=== PATIENT | female | born 1985 | race Caucasian/White ===

== ENCOUNTER 2019-10-02 10:29 | Emergency (ER) | payer MEDICAID, SELFPAY ==
[2019-10-02 10:29] VITALS: BP 98/66; PULSE 106; RESP 24; TEMP 37; O2SAT 100
--- NOTE | 2019-10-02 10:30 | DI.CT_ITS ---
EXAM: CT CHEST/ABD/PEL W CLINICAL HISTORY: Trauma rule out internal hemorrhage TECHNIQUE: COMPARISON: No exams were available for comparison FINDINGS: CT examination of the chest,, and pelvis was performed with bolus infusion of 1 cc of Omnipaque 350. There are severe pulmonary emphysematous changes predominantly involving the upper lobes. There is predominantly linear radiodensity in the right lung base which may represent areas of atelectasis and /or scarring. Possibility of pulmonary contusion is not excluded, please correlate regarding exact s ite of major injury. No abnormality of the tracheobronchial tree seen. No pleural effusion or pneum othorax. No mediastinal hematoma. No vascular injury of the thorax. Marked breathing artifact obscures the borders of the spleen and superior border of the liver. No gr oss free fluid identified in the upper abdomen, splenic injury cannot be reliably excluded, repeat CT may be obtained if clinically indicated. Similarly, there is poor visualization of the upper poles of both kidneys, renal injury cannot reliably be excluded. Pancreas is unremarkable in appearance. No free intraperitoneal air. No gross bowel injury or or obstruction. No gross abdominal wall hemat briseida or hernia. Urinary bladder appears intact. No evidence of vascular injury of the abdomen. No free intraperitoneal fluid or free air. No fracture identified on scanning of the chest abdomen and pelvis. IMPRESSION: No evidence of acute injury of the chest abdomen or pelvis. Spleen liver and kidneys were not ideall y evaluated due to motion artifact, repeat scan may be obtained if clinically indicated.
--- NOTE | 2019-10-02 10:30 | DI.CT_ITS ---
EXAM: CT HEAD CERVICAL SPINE WO CLINICAL HISTORY: Trauma rule out hemorrhage or fracture TECHNIQUE: COMPARISON: No exams were available for comparison FINDINGS: CT examination of the cervical spine was performed utilizing multi slice acquisition multiplanar viral nstruction. There is no cervical mass or adenopathy. Tracheolaryngeal structures appear intact. Pr evertebral soft tissues are unremarkable. There are mild degenerative changes of the mid cervical re gion. There is a nondisplaced fracture of the posterior spinous process of C5. No additional fracture seen . No evidence of facet dislocation. Noncontrast cranial CT was performed. There is no evidence of calvarial fracture. The orbital and t emporal bone structures appear intact. Visualized mastoid air cells and paranasal sinuses are clear. There is no evidence of acute intracranial hemorrhage, mass effect, or midline shift. IMPRESSION: No evidence of acute intracranial process. Nondisplaced stable fracture posterior spinous process C5. No additional cervical spine injury seen.
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
--- NOTE | 2019-10-02 10:33 | DI.CT_ITS ---
EXAM: CT THORACIC LUMBAR SPINE REC CLINICAL HISTORY: Trauma lower back pain TECHNIQUE: COMPARISON: No exams were available for comparison FINDINGS: CT reconstructions of the thoracic spine and CT reconstructions of the lumbar spine were from the law data from the chest abdomen pelvis CT. No thoracic spine fracture seen. No lumbar spine fracture s een. SI joints appear well maintained. IMPRESSION: No acute fracture identified.
[2019-10-02] MEDS: Normal Saline Flush 10 ML SYR IVP ×2 (10:40→17:00)
[2019-10-02] MEDS: Normal Saline 1,000 ML 1000 ML IV ×2 (10:40→12:15)
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
--- NOTE | 2019-10-02 10:45 | DI.RAD_ITS ---
EXAM: XR KNEE RT 2V AP,LAT CLINICAL HISTORY: Trauma TECHNIQUE: COMPARISON: No exams were available for comparison FINDINGS: Two views were obtained. There is no evidence of a fracture or dislocation. IMPRESSION:
[2019-10-02] MEDS: Ondansetron 4 MG/2 ML VIAL IVP (10:46)
[2019-10-02] MEDS: Omnipaque 350 MG/ML 100 ML BTL IJ ×2 (11:29→16:58)
[2019-10-02 12:01] LABS: Bilirubin Negative (Negative); Blood Negative (Negative); Glucose Negative (Negative); Ketones Negative (Negative); Leukocyte Esterase Negative (Negative); Nitrite Negative (Negative); pH 7.5 (5-8)
[2019-10-02 12:16] LABS: *AMPHETAMINES SCREEN URINE Negative (Negative); *BARBITURATES SCREEN URINE Negative (Negative); *BENZODIAZEPINES SCREEN URINE Negative (Negative); Cannabinoids THC POSITIVE (Negative); Cocaine Screen,Urine POSITIVE (Negative); METHADONE URINE SCREEN Negative (Negative); OPIATES URINE SCREEN POSITIVE (Negative); Tricyclic Antidepressants Negative (Negative)
[2019-10-02 12:25] LABS: ALT 30 U/L (14-59); AST 43 U/L (15-37); Albumin 3.1 g/dL (3.4-5.0); Alkaline Phosphatase 89 U/L (46-116); Anion Gap 11.6 mmol/L (3-11); BUN 14 mg/dL (7-18); Bilirubin, Total 0.2 mg/dL (0.2-1.0); CO2 18.4 mmol/L (21.0-32.0); CREATININE 0.85 mg/dL (0.55-1.02); Calcium 8.1 mg/dL (8.5-10.1); Chloride 108 mmol/L (98-107); Glucose 109 mg/dL (74-106); Lipase 94 U/L (73-393); Sodium 138 mmol/L (136-145); Total Protein 6.7 g/dL (6.4-8.2)
[2019-10-02 12:33] LABS: Abs Immature Grans 0.07 k/cumm (0.0-0.09); Absolute Basophil Count 0.02 k/cumm (0.0-0.2); Absolute Eosinophil Count 0.22 k/cumm (0.0-0.7); Absolute Lymphocyte Count 0.95 k/cumm (1.2-3.4); Absolute Monocyte Count 0.82 k/cumm (0.11-0.7); Absolute Neutrophil Count 14.58 k/cumm (1.2-6.7); Basophils % 0.1; Eosinophils % 1.3; HGB 12.6 g/dL (12.0-15.5); Immature Grans % 0.4 %; Lymphocytes % 5.7; Mean Corp. HGB Concentration 33.2 g/dL (32.0-36.0); Mean Corpuscular Hemoglobin 29.4 pg (27.0-33.0); Mean Corpuscular Volume 88.8 fL (80-95); Mean Platelet Volume 9.5 fL (8.0-11.0); Monocytes % 4.9; Neutrophils % 87.6; Platelet Count 365 x1000/uL (130-400); RBC 4.28 m/cumm (4.00-5.20); RBC Distribution Width 12.4 % (11.7-14.6); White Blood Cell Count 16.64 k/cumm (4.4-10.8)
[2019-10-02 12:35] LABS: Clarity Sl Cloudy (Clear); RBC 0-2 HPF (0-2); WBC Negative HPF (0-5)
[2019-10-02 12:35] LABS: ETHANOL BLOOD < 3.0 mg/dL (<3); Troponin I < 0.05 ng/mL (<0.06)
[2019-10-02 12:36] LABS: Bacteria Negative HPF (Negative); C & S Indicated? No; Casts Negative LPF (Negative); Crystals Negative HPF (Negative); Epithelial Cells Moderate HPF (Negative); Mucus Negative (Negative); Other Cells Rare Renal (Negative)
[2019-10-02] MEDS: Lidocaine/Epinephri/Tetracaine Topical Gel 3 ML TP (12:49)
[2019-10-02 13:15] VITALS: BP 111/60; PULSE 82; RESP 20; TEMP 37.1; O2SAT 98
[2019-10-02] MEDS: cefTRIAXone 1 GM/50 ML BAG 100 GM (14:31)
[2019-10-02] MEDS: Bacitracin 1 PACKET TP (14:41)
[2019-10-02 15:02] VITALS: BP 120/64; PULSE 84; RESP 16; TEMP 37; O2SAT 100
--- NOTE | 2019-10-02 15:45 | DI.CT_ITS ---
EXAM: CT CAROTID NECK CTA CLINICAL HISTORY: Rule out vertebral artery trauma TECHNIQUE: COMPARISON: CT CT CHEST/ABD/PEL W from 10/02/2019 FINDINGS: CT angiography of the cervical region was performed with intravenous infusion 85 cc Omnipaque 350. P lease see accompanying cervical spine and chest CT reports. Aortic arch is unremarkable. Common and internal carotid arteries appear normal bilaterally with no evidence occlusion, stenosis, or dissect ion. Visualized external carotid arteries are unremarkable. Left vertebral artery is normal in appe arance throughout its course with no evidence of aneurysm, stenosis, or dissection. Right vertebral artery shows no evidence of aneurysm, stenosis, or dissection. Visualized basilar ar romy is unremarkable. Vertebral circulation is left dominant. IMPRESSION: Negative CT angiography of the neck.
[2019-10-02] MEDS: Cyclobenzaprine 10 MG TAB PO (16:28)
[2019-10-02] MEDS: Acetaminophen 500 MG TAB 1000 MG PO (16:28)
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
[2019-10-02 17:37] VITALS: BP 107/73; PULSE 84; RESP 16; TEMP 37.4; O2SAT 99
== END 2019-10-02 17:50 | disposition home or self-care (01) ==
PROVIDERS: Emergency Provider Registered Nurse Emergency
DX: S12.491A Other nondisplaced fracture of fifth cervical vertebra, initial encounter for closed fracture (principal); S51.811A Laceration without foreign body of right forearm, initial encounter; M54.5 Low back pain; M25.561 Pain in right knee; V47.6XXA Car passenger injured in collision with fixed or stationary object in traffic accident, initial encounter
CPT/HCPCS: 12002; 36415; 70498; 74177; 80053; 80307; 81025; 83690; 86850; 86900; 86901; 90471; 93005; 96361; 96365; 96375; 96376; 99291; L0172; 70450; 71260; 72125; 73090; 73560; 80320; 81003; 81015; 83735; 84484; 85025; 93010; J0696; J2405; J3490; L0120